=== PATIENT | male | born 2000 | race Caucasian/White ===

== ENCOUNTER → 2024-05-19 11:11 | Outpatient (BNVA) | payer OTHER, SELFPAY | PROVIDERS: PCP Pediatrics; Visit Provider Physician Assistant | DX: Z13.89 Encounter for screening for other disorder (principal) | CPT/HCPCS: 12001; 99203 ==

== ENCOUNTER → 2024-05-24 10:27 | Outpatient (BNVA) | payer OTHER, SELFPAY | PROVIDERS: PCP Pediatrics; Visit Provider Registered Nurse | DX: Z13.89 Encounter for screening for other disorder (principal) | CPT/HCPCS: 99213 ==

== ENCOUNTER 2024-08-13 14:09 | Emergency (ER) | payer OTHER, SELFPAY ==
[2024-08-13 14:16] VITALS: BP 145/79; PULSE 93; RESP 20; TEMP 35.9; O2SAT 95; BMI 40.9
--- NOTE | 2024-08-13 14:17 | ED.GENADULT ---
HPI - General Adult General Chief complaint: Wound/Laceration Stated complaint: cut finger @ work Time Seen by Provider: 08/13/24 14:41 Source: patient Mode of arrival: ambulatory Limitations: no limitations History of Present Illness ED Provider: Alma Sargent APRN HPI narrative: 24 yo male with no known medical history , right-hand dominant here with laceration to the right 4th finger which occurred from a broken plate while working. Tetanus status is unknown. Patient reports laceration to the finger. Denies any associated weakness, numbness or tingling of the extremities. Related Data Allergies Allergy/AdvReac Type Severity Reaction Status Date / Time No Known Allergies Allergy Verified 08/13/24 14:18 Coffee Flavor Allergy Unknown break out Uncoded 12/29/18 00:00 in a rash Review of Systems Review of Systems: Yes all other systems are reviewed and are negative Constitutional: Constitutional: Reports no additional constitutional complaints, Denies body ache(s), Denies chills, Denies fever(s), Denies headache(s) and Denies weakness Eyes: Eyes: Reports no additional eye complaints and Denies change in vision ENT: Reports system reviewed and no additional complaints, except as documented, Denies dizziness, Denies headache(s), Denies nasal congestion, Denies nasal discharge and Denies neck pain Cardiovascular: Cardiovascular: Reports no additional cardiovascular complaints, Denies chest pain, Denies leg edema and Denies dyspnea Respiratory: Respiratory: Reports no additional respiratory complaints, Denies cough and Denies dyspnea Gastrointestinal: Gastrointestinal: Reports no additional gastrointestinal complaints, Denies abdominal pain, Denies diarrhea, Denies nausea and Denies vomiting Genitourinary: Genitourinary: Denies urinary incontinence Musculoskeletal: Musculoskeletal: Reports no additional musculoskeletal complaints, Denies back pain, Denies arthralgias, Denies joint swelling, Denies neck pain, Denies numbness and Denies tingling Integumentary/Breasts: Skin/Breast: Reports system reviewed and no additional complaints, except as docu, Denies rash and Reports wounds Neurologic: Reports system reviewed and no additional complaints, except as documented, Denies Abnormal speech present, Denies dizziness, Denies headache(s), Denies numbness, Denies tingling and Denies weakness PMFSH Past Medical History Attestation statement: The following information was validated with the patient. Source: old records reviewed and nursing notes reviewed Social History Social History Advance Directives: No Advance Directives Information Provided: Yes Physical Exam ED Vital Signs: Vital Signs - 24 hr 08/13/24 14:16 08/13/24 15:26 Temperature 96.6 F L 96.6 F L Pulse Rate 93 93 Respiratory Rate 20 20 Blood Pressure 145/79 H 145/79 H Pulse Oximetry 95 95 Oxygen Delivery Method Room Air Room Air BMI result Body Mass Index 40.9 Const General: cooperative, healthy appearing, comfortable and no acute distress Orientation/consciousness: patient oriented x3 Limitations: no limitations HENMT Head: Yes normal to inspection Ears: hearing grossly normal bilaterally General nose exam: Normal external nose present Face and sinus: Yes normal facial exam Mouth: Normal oral and palatal mucosa present Throat: Yes posterior oropharynx normal Eyes General: appearance normal, both eyes and all related structures Pupils: Equal, round and reactive pupils present Neck Neck: Yes normal visual inspection Chest Chest palpation & inspection: normal inspection of the chest Resp Effort & Inspection: normal respiratory effort Auscultation: clear to auscultation bilaterally Cardio Rate: regular rate Rhythm: regular rhythm Peripheral pulses: Peripheral pulses 2+ throughout GI Inspection: Yes normal to inspection Palpation (GI): Soft to palpation and nontender Auscultation: normal bowel sounds Back/Spine/Pelvis Thoracic/Lumbar Spine: thoracic and lumbar spine normal to inspection Skin General skin exam: no rashes or lesions noted Neuro General: patient oriented x3, no focal motor deficits and normal sensation to monofilament Cranial nerves: Yes Equal, round and reactive pupils present Cognition (Neuro): normal cognition Speech: No Abnormal speech present Gait exam (Neuro): Normal gait present Motor exam (neuro): 5/5 motor strength present throughout Extrem Other: On the volar aspect of the right hand at the base of the 4th digit there is an approximately 3 cm laceration. Bleeding is controlled. There is full active and passive flexion and extension of the digit. There is distal sensation which is intact of the digit. Course Course Course Narrative: This is a rapid medical exam performed by Joan Porter NP: Additional HPI, ROS, PE not included below will be deferred to primary provider. Patient is a 24-year old right hand dominant male presenting with laceration to right 4th finger. 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 Unsure last Tdap. Full ROM to finger. 1cm lac to proximal finger, palmar aspect. Plan: Tdap, will need sutures Medications Administered Discontinued Medications Generic Name Dose Route Start Last Admin Trade Name Daniella PRN Reason Stop Dose Admin Bacitracin 1 appl 08/13/24 14:18 08/13/24 14:54 Bacitracin Oint 0.9 Gm Packet TOPICAL 08/13/24 14:19 1 appl ONCE ONE Administration Protocol Diphtheria/Tetanus/Acell Pertussis 0.5 ml 08/13/24 14:18 08/13/24 14:52 Diphth,Pertus(Acell),Tet Adult 0.5 Ml Syringe IM 08/13/24 14:19 0.5 ml .ONCE ONE Administration Lidocaine HCl 5 ml 08/13/24 14:18 08/13/24 14:53 Lidocaine Hcl 1 % Mpf 5 Ml Vial INFILTRATI 08/13/24 14:19 5 ml ONCE ONE Administration Procedures Laceration Laceration 1: Site: hand Side (If applicable): right (Fourth digit) Size (cm): 3 Description: linear Depth: simple, single layer Local Anesthetic: lidocaine 1% Amount of anesthesia used (mL): 5 Pre-repair: wound explored, irrigated extensively (500 mL fluid with irrigation) and deep structures intact Skin layer closed with: vicryl Size (cm): 5-0 Number of sutures: 4 Technique: simple, interrupted Medical Decision Making Medical Decision Making MDM Narrative: 24 yo male with no known medical history , right-hand dominant here with laceration to the right 4th finger which occurred from a broken plate while working. Tetanus status is unknown. Patient reports laceration to the finger. Denies any associated weakness, numbness or tingling of the extremities. On the volar aspect of the right hand at the base of the 4th digit there is an approximately 3 cm laceration. Bleeding is controlled. There is full active and passive flexion and extension of the digit. There is distal sensation which is intact of the digit. See procedure note for wound repair Will update tetanus Differential Diagnosis Differential Diagnoses: The differential diagnosis associated with the presentation includes Laceration, avulsion, abrasion Low suspicion for retained foreign body, tendon or vascular injury Admission/Observation Consideration of admission/observation: Escalation of care including admission/observation considered Low suspicion for retained foreign body, tendon or vascular injury requiring advanced imaging, urgent orthopedic consultation and or admission Tests considered The following testing was considered but not selected: Low suspicion for retained foreign body, tendon or vascular injury requiring advanced imaging Prescription Management I considered prescription management with: Antibiotic Discharge Plan Discharge Clinical Impression: Laceration Patient Disposition: Home, Self-Care Instructions: Finger Laceration (ED) Additional Instructions: Sutures removed in 7-10 days You may follow up with were connection for suture removal. Water may run over the sutures. No soaking in water Return for signs of infection such as redness, swelling, drainage, fever odor Stand Alone Forms: Work/School Release Interventions: ED Discharge Assessment Last Done: 08/13/24 15:26 Print Language: [place]
[2024-08-13] MEDS: Diphth,Pertus(ACell),Tet Adult 0.5 ML SYRINGE IM (14:52)
[2024-08-13] MEDS: Lidocaine HCl 1 % MPF 5 ML VIAL INFILTRATI (14:53)
[2024-08-13] MEDS: Bacitracin Oint 0.9 GM PACKET 1 APPL TOPICAL (14:54)
[2024-08-13 15:26] VITALS: BP 145/79; PULSE 93; RESP 20; TEMP 35.9; O2SAT 95
== END 2024-08-13 15:28 | disposition home or self-care (01) ==
PROVIDERS: Emergency Provider Emergency Medicine
DX: S61.214A Laceration without foreign body of right ring finger without damage to nail, initial encounter (principal); W25.XXXA Contact with sharp glass, initial encounter; Y93.G1 Activity, food preparation and clean up; Y92.233 Cafeteria of hospital as the place of occurrence of the external cause; Y99.9 Unspecified external cause status; Z23 Encounter for immunization
CPT/HCPCS: 12042; 90471; 90715; 99284; J2003